=== PATIENT | male | born 1945 | race Caucasian/White ===

== ENCOUNTER → 2016-10-15 | Outpatient (CLI) | payer MEDICARE ==
[~2016-10-15] MED LIST: IOHEXOL 300MG/ML 150 ML BTL ONE; SOD CHLORIDE 0.9% 0 ML ONE; SOD CHLORIDE 0.9% 100 ML ONE
== END | disposition home or self-care (01) ==
LOC: C/S 12:42
PROVIDERS: ATTEND Internal Medicine
DX: R19.00 Intra-abdominal and pelvic swelling, mass and lump, unspecified site (principal)
CPT/HCPCS: 74177; Q9967

== ENCOUNTER 2017-02-11 10:34 | Observation (INO) | payer MEDICARE ==
[2017-02-10 16:04] VITALS: Ht 170.2 cm; Wt 90.4 kg
[~2017-02-11] VITALS: Ht 170.2 cm; Wt 90.4 kg
[2017-02-11] VITALS (15 sets, daily range): BP systolic 122–155; BP diastolic 57–79; PULSE 56–85; RESP 15–18
--- NOTE | 2017-02-11 09:10 | HPN ---
Date/Time of Note Date/Time of Note DATE: 02/11/17 TIME: 09:09 Interval H&P Admission Note Pt. seen H&P reviewed: No system changes VINICIUS WALLER MD Feb 11, 2017 09:10
[~2017-02-11 10:34] MED LIST changes: +ATROPINE 1 MG/10 ML SYRINGE IV PRN; +DIPHENHYDRAMINE 50 MG INJ IV PRN; +EPHEDrine SULFATE 50 MG/5 ML SYG IV PRN; +FENTAnyl 50 MCG/ML VIAL IV PRN; +HYDROmorphONE (0.2 MG/ML) 10ML SYG IV PRN; -IOHEXOL 300MG/ML 150 ML BTL ONE; +LABETALOL HCL 20MG INJ IV PRN; +MEPERIDINE 25 MG INJ IV PRN; +MIDAZOLAM 1 MG/ML 2 ML INJ IV PRN; +ONDANSETRON 4 MG INJ IV PRN; +OXYCODONE/ACETAMINOPHEN (5/325) TAB PO PRN; -SOD CHLORIDE 0.9% 0 ML ONE; -SOD CHLORIDE 0.9% 100 ML ONE; +SUGAMMADEX SODIUM 200 MG/2 ML VIAL IV ONE; +hydrALAzine 20 MG INJ IV PRN; +morphine (1 MG/ML) 10ML SYRINGE IV PRN
--- NOTE | 2017-02-11 10:58 | HP ---
DATE OF ADMISSION: 02/11/2017 The patient is being admitted on an elective basis on 02/11/2017 for transurethral resection of the prostate per Dr. Biggs. HISTORY OF PRESENT ILLNESS: The patient is a 72-year-old gentleman who is well known to me with his tory of benign prostatic hypertrophy with frequent urinary retention requiring self-catheterization and the patient had been seen by Dr. Biggs and was advised TUR and is being admitted for same. MEDICATIONS: Include: 1. Warfarin 3 mg p.o. daily, on hold for the past week. 2. Carvedilol 25 mg daily. 3. Lisinopril 5 mg daily. 4. Risperidone 1.5 mg q.p.m. 5. Lexapro 5 mg p.o. daily. REVIEW OF SYSTEMS: HEAD: No history of headaches. Has occasional dizziness. No focal weakness or numbness. The martinez ent has recently been diagnosed with major depressive disorder with psychotic features, seen by [facility]. EYES: The patient wears glasses. No history of cataracts. ENT: No sinusitis, tonsillitis, or hearing loss. NECK: No history of thyroid disease. CHEST: No cough, shortness of breath, hay fever, or asthma. The patient does not smoke. HEART: History of chronic atrial fibrillation diagnosed 10 years ago, states that he has always bee n in atrial fibrillation, does not have any symptoms of shortness of breath or dizziness or palpitat ions, had been on Coumadin for the past 10 years. Denies any PND, orthopnea. The patient had been seen by Dr. Mcclellan, had been cleared for TURP. GASTROINTESTINAL: No constipation, diarrhea, change in bowel habits. The patient had a fullness in the abdomen and underwent a GI workup including colonoscopy which showed normal finding all the way to the cecum, normal esophagus with some gastritis. GENITOURINARY: History of nephrolithiasis, history of BPH as above. The patient had urine culture d one preop which showed E. coli more than 100,000 and been placed on a course of Cipro 500 mg p.o. b. i.d. FAMILY HISTORY: Noncontributory. ALLERGIES: NO KNOWN ALLERGIES. PHYSICAL EXAMINATION: GENERAL: The patient is an average-built male who is presently in no acute distress, very pleasant, awake, alert. VITAL SIGNS: Blood pressure 140/90, respiratory 20 per minute. HEENT: Head normocephalic. No pallor, cyanosis, or icterus. Tongue is moist. NECK: Supple. No thyromegaly, bruits or lymphadenopathy. CHEST: Clinically clear. HEART: S1, S2 heard with no definite gallops. ABDOMEN: Soft, nontender, no hepatosplenomegaly. EXTREMITIES: No edema. Homans sign is negative. NEUROLOGIC: No localizing or lateralizing signs. Chest x-ray shows normal size heart, lung hansen clear. INR done on 02/05/2017 was 1.9 (patient has since stopped Coumadin), hematocrit 38.6, WBC count 3.5. UA positive for nitrites, positive cultur es for E. coli more than 100,000 colony count, on Cipro, BUN 16, creatinine 1.0. Glucose 92. EKG s hows atrial fibrillation with acceptable ventricular response. IMPRESSION: 1. Benign prostatic hypertrophy, symptomatic for transurethral resection of prostate per Dr. Ananth del rosario. 2. Chronic atrial fibrillation, well compensated. No evidence of congestive heart failure. 3. Hypertension. 4. Underlying major depression. 5. Urinary tract infection with Escherichia coli. PLAN: The patient's overall medical condition is stable for the proposed surgery per Dr. Biggs. We will obtain another reading on the PT/INR prior to surgery if medical condition is stable for the proposed surgery. Dictated By: RINA MCKEON MD, SR/SANDRA Conf#: [id number] DID#: [id number]
[2017-02-11] MEDS ORDERED: LISI20TA11 PO (11:11)
[2017-02-11] MEDS ORDERED: CARV3.1260 PO (11:11)
[2017-02-11] MEDS ORDERED: WARF1TAB47 PO (11:11)
[2017-02-11] MEDS ORDERED: RIS1 PO (11:12)
[2017-02-11] MEDS ORDERED: POTA20TA96 PO (11:12)
[2017-02-11] MEDS ORDERED: ESCI5TAB PO (11:13)
[2017-02-11] MEDS ORDERED: GLYCOPYRROLATE 1 MG INJ ONE (11:16)
[2017-02-11] MEDS ORDERED: LIDOCAINE 2% (SDV) 5 ML INJ ONE (11:16)
[2017-02-11] MEDS ORDERED: NEOSTIGMINE 3 MG/3 ML SYRINGE ONE (11:17)
[2017-02-11] MEDS ORDERED: PROPOFOL 20 ML ONE (11:17)
[2017-02-11] MEDS ORDERED: MIDAZOLAM 1 MG/ML 2 ML INJ ONE (11:17)
[2017-02-11] MEDS ORDERED: FENTAnyl 50 MCG/ML VIAL ONE (11:17)
[2017-02-11] MEDS ORDERED: ROCURONIUM 50 MG INJ ONE (11:17)
[2017-02-11] MEDS ORDERED: ONDANSETRON 4 MG INJ ONE (11:18)
[2017-02-11] MEDS ORDERED: DEXAMETHASONE 4 MG/ML 1 ML INJ ONE (11:18)
[2017-02-11] MEDS ORDERED: CEFTRIAXONE 1 GM/50 ML (PMX) 50 ML IVPB SCH (12:16)
[2017-02-11] MEDS ORDERED: DEXTROSE 5%-0.45% NACL 1,000 ML IV SCH (15:11)
--- NOTE | 2017-02-11 15:26 | OPR ---
Date/Time of Note Date/Time of Note DATE: 02/11/17 TIME: 15:21 Operative Report Procedure Date: Feb 11, 2017 Preoperative Diagnosis Benign prostatic hypertrophy with urinary retention Postoperative Diagnosis Benign prostatic hypertrophy with urinary retention Operation/Procedure Performed Transurethral resection of the prostate Surgeon see signature line [employer]os[employer]dn[employer] Disposal Specialist None Anesthesia Type: general Anesthesiologist: LIDIA THOMSON MD Estimated Blood Loss: other (500 mL) Transfusion none Specimen Prostatic tissue Grafts/Implants none Complications none Pt Condition Post Procedure: stable Disposition: PACU Indications Benign prostatic hypertrophy, very large prostate, urinary retention Procedure Description The patient was brought to the operating room general anesthesia was induced. Timeout was done the patient was identified by his name birthdate and the procedure. The patient was given 1 g of ceftriaxone IV at the start of the procedure. The genital area was then prepped and draped in the usual sterile manner cystoscopy was done was a 22 [place] cystoscope and it showed prostatic enlargement with obstruction, the bladder was trabeculated, there was no bladder tumors or stones. The cystoscope was then removed and the urethra was dilated with a [place] dilators up to #30 [place]. The 26 [place] bipolar resectoscope sheath was then introduced under direct vision through the penile urethra all the way to the bladder. Then the resection of the prostate was started first the median lobe was resected then the right lateral lobe then the left lateral lobe and finally the anterior lobe as well as apical tissue. All the bleeders were electrocoagulated, all the prostatic chips were evacuated, good hemostasis was obtained. The ureteral orifices as well as external sphincter were intact and safeguarded during the whole procedure. At the end of the procedure the resectoscope was removed and #24 [place] three-way Smallwood catheter was inserted into the bladder the balloon was inflated with 90 mL of sterile water the catheter was put under traction and connected to a drainage bag and continuous bladder irrigation was started in the operating room with normal saline. The patient was transferred to the recovery room in stable and satisfactory condition. VINICIUS WALLER MD Feb 11, 2017 15:25
[2017-02-11] MEDS ORDERED: TOLTERODINE (SR) 4 MG CAP PO ONE (16:00)
[2017-02-11] MEDS ORDERED: POTASSIUM CHLORIDE 30 MEQ in DEXTROSE 5%-0.45% NACL 1,000 ML IV SCH ×2 (19:00→22:00)
[2017-02-11] MEDS: CEFTRIAXONE 1 GM/50 ML (PMX) 50 ML IVPB SCH (20:01)
[2017-02-11] MEDS ORDERED: D5W-0.45 NACL + KCL 30 MEQ 1,000 ML IV SCH (23:30)
[2017-02-12 00:10] VITALS: BP 130/70; RESP 18
[2017-02-12 02:08] VITALS: BP 118/80; RESP 18
--- NOTE | 2017-02-12 02:59 | PN ---
DATE: 02/11/2017 SUBJECTIVE: The patient is a 72-year-old gentleman well known to me with a history of benign prosta tic hypertrophy admitted today for TURP per Dr. Biggs, and the patient was seen postoperatively. MEDICATIONS: 1. Warfarin 3 mg daily, which has been on hold for the past week. 2. Carvedilol 25 mg daily. 3. Lisinopril 5 mg daily. 4. Risperidone 1.5 mg p.o. q.p.m. 5. Lexapro 5 mg p.o. daily. The patient also has history of chronic atrial fibrillation. PHYSICAL EXAMINATION GENERAL: The patient is presently awake. VITAL SIGNS: Temperature 98.2, blood pressure 139/69, O2 saturation 99% on 2 liters nasal cannula. LUNGS: Clinically clear. HEART: S1, S2 heard with no definite gallops. Irregular rhythm. EXTREMITIES: No edema. The patient is presently getting bladder irrigation. LABORATORY DATA: Hematocrit done at 1530 hours is 31.5. Sodium 145, potassium 3.5, BUN 19, creatin ine 0.96. IMPRESSION: 1. Benign prostatic hypertrophy with a very large prostate, status post TURP. No evidence of bladde r tumor or stones. 2. Chronic atrial fibrillation, well compensated. 3. Mild anemia. 4. Hypertension. 5. Borderline potassium levels. PLAN: Will add 20 mEq of KCl in the IV to keep the potassium over 4 in view of underlying atrial fi brillation. The patient had been on lisinopril, carvedilol and Lexapro which will be continued. We will hold on the risperidone. Recheck potassium and magnesium in a.m. along with renal function an d hemoglobin and hematocrit. Transfuse as needed. Follow up GI recommendations per Dr. Biggs. Dictated By: RINA MCKEON MD SR/NTS Conf#: [id number] DID#: [id number]
[2017-02-12 07:34] VITALS: BP 131/84; RESP 18
--- NOTE | 2017-02-12 07:51 | PN ---
Date/Time of Note Date/Time of Note DATE: 02/12/17 TIME: 07:48 Assessment/Plan VTE Prophylaxis VTE Prophylaxis Intervention: SCD's Lines/Catheters IV [facility] Saline Lock Urinary Cath still in place: Yes Reason Cath still needed: other (indicate) (Urological surgery) Assessment/Plan Chief Complaint/Hosp Course Patient is status post transurethral resection of the prostate. Bladder irrigation was still going,will try to slow it down today, encourage him to drink a lot of fluids. Try to ambulate, stool softener and milk of magnesia as needed. May stop the irrigation tomorrow and then the urine remains clear we could send him home Problems: Subjective 24 Hr Interval Summary Constitutional: no complaints Eyes: no complaints Respiratory: no complaints Cardiovascular: no complaints Gastrointestinal: no complaints Genitourinary: other (No bladder spasms) Musculoskeletal: no complaints Exam/Review of Systems Vital Signs Vitals Vital Signs Date Time Temp Pulse Resp B/P Pulse Ox O2 Delivery O2 Flow Rate FiO2 02/12/17 07:34 98.5 78 18 131/84 100 02/12/17 01:20 2.0 02/11/17 20:13 Room Air Intake and Output 02/11/17 02/11/17 02/12/17 15:00 23:00 07:00 Intake Total 3450 ml 1200 ml Output Total 500 ml 2000 ml Balance -500 ml 3450 ml -800 ml Exam Constitutional: alert Psych: no complaints Eyes: nl conjunctiva Neck: supple Respiratory: normal air movement Cardiovascular: No edema Gastrointestinal: soft Genitourinary - Male: other (Three-way Smallwood catheter in place, bladder irrigation, return is clear) Extremities: No calf tenderness Results Result Diagram: 02/12/17 0500 02/11/17 1529 Results 24 hrs Laboratory Tests Test 02/11/17 11:30 02/11/17 15:29 02/11/17 15:30 02/12/17 05:00 Prothrombin Time 15.2 H Prothrombin Time Ratio 1.2 INR International Normalized Ratio 1.19 Activated Partial Thromboplast Time 30.9 Sodium Level 145 H Potassium Level 3.5 Chloride Level 115 H Carbon Dioxide Level 23 Anion Gap 11 Blood Urea Nitrogen 19 Creatinine 0.96 Glucose Level 92 Calcium Level 7.5 L Hemoglobin 10.7 L 11.3 L Hematocrit 31.5 L 32.9 L White Blood Count 4.3 L Red Blood Count 3.70 L Mean Corpuscular Volume 88.9 Mean Corpuscular Hemoglobin 30.5 Mean Corpuscular Hemoglobin Concent 34.3 Red Cell Distribution Width 12.5 Platelet Count 175 Mean Platelet Volume 10.8 H Neutrophils % 90.7 H Lymphocytes % 5.6 L Monocytes % 3.5 Eosinophils % 0.0 Basophils % 0.0 Nucleated Red Blood Cells % 0.0 Neutrophils # 3.9 Lymphocytes # 0.2 L Monocytes # 0.2 L Eosinophils # 0.0 Basophils # 0.0 Nucleated Red Blood Cells # 0.0 Magnesium Level 1.3 L Medications Medications Current Medications Tolterodine Tartrate 4 mg 4 mg DAILY PO ; Start 02/12/17 at 09:00 Ceftriaxone Sodium 50 ml @ 100 mls/hr Q24H IVPB Last administered on t 20:01; Admin Dose 100 MLS/HR; Start 02/11/17 at 20:00 Potassium Chloride/Dextrose/ Sod Cl (D5-1/2ns + KCl 30 Meq) 1,000 ml @ 50 mls/ hr Q20H IV ; Start 02/11/17 at 23:30 VINICIUS WALLER MD Feb 12, 2017 07:51
[2017-02-12] MEDS ORDERED: MAGNESIUM HYDROXIDE 30ML CUP PO PRN (08:00)
[2017-02-12] MEDS: DOCUSATE SODIUM 100 MG CAP PO SCH ×2 (08:18→21:04)
[2017-02-12] MEDS: TOLTERODINE (SR) 4 MG CAP PO SCH (08:18)
[2017-02-12 14:00] VITALS: BP 122/74; RESP 18
[2017-02-12] MEDS ORDERED: MAGNESIUM SULFATE 4 GM/100 ML 100 ML IVPB ONE (15:00)
[2017-02-12 20:02] VITALS: BP 122/80; PULSE 84; RESP 18
[2017-02-12] MEDS: CEFTRIAXONE 1 GM/50 ML (PMX) 50 ML IVPB SCH (21:04)
--- NOTE | 2017-02-13 02:07 | PN ---
DATE: 02/12/2017 SUBJECTIVE: The patient overall feels well. Denies any chest pain, shortness of breath, or palpita tions. Appetite is good. No nausea, vomiting . Bladder irrigation in progress. Urine is pink, not cloudy. The patient has not had a BM as yet. Denies any chills. PHYSICAL EXAMINATION GENERAL: The patient is awake, alert. VITAL SIGNS: Temperature 98.5, blood pressure 131/84, respiratory rate 20 per minute, pulse irregul rosalina irregular, heart rate 100. LUNGS: Clinically clear. HEART: S1, S2 with no definite gallops. EXTREMITIES: No edema. LABORATORY DATA: BMP is pending, hematocrit 32.9, magnesium 1.3. IMPRESSION: 1. Status post TURP with no evidence of bladder tumor or stones. 2. Chronic atrial fibrillation. 3. Mild anemia. 4. Severe hypomagnesemia. PLAN: Will recheck potassium, replace magnesium, given 4 gram bolus. Restart on beta blockers. Ca rvedilol 25 mg p.o. right now. Consider increasing the dose of beta blockers depending on the ventr icular response. Recheck labs again in a.m. Dictated By: RINA MCKEON MD, SR/SANDRA Conf#: [id number] DID#: [id number]
[2017-02-13 07:00] VITALS: BP 139/82; RESP 18
[2017-02-13] MEDS: DOCUSATE SODIUM 100 MG CAP PO SCH (08:42)
[2017-02-13] MEDS: TOLTERODINE (SR) 4 MG CAP PO SCH (08:43)
--- NOTE | 2017-02-13 12:34 | PN ---
Date/Time of Note Date/Time of Note DATE: 02/13/17 TIME: 12:29 Assessment/Plan VTE Prophylaxis VTE Prophylaxis Intervention: ambulation Lines/Catheters IV Catheter Type (from Nrs): Peripheral IV Urinary Cath still in place: Yes Reason Cath still needed: other (indicate) (Urological surgery) Assessment/Plan Chief Complaint/Hosp Course Patient is status post transurethral resection of the prostate. Patient is doing well. The urine is clear without irrigation. The patient could go home today with the Smallwood catheter and a leg bag and I will see him in the office on Tuesday or to remove the Smallwood catheter. He has very little if any pain therefore he does not need any pain medications. I wrote a prescription for him for Colace and ferrous sulfate and milk of magnesia. Problems: Subjective 24 Hr Interval Summary Free Text/Dictation Patient is a 72-year-old male status post transurethral resection of the prostate. He is feeling better, has less bladder spasms, he had 2 bowel movements yesterday. The bladder irrigation was stopped this morning and the urine remains clear. Exam/Review of Systems Vital Signs Vitals Vital Signs Date Time Temp Pulse Resp B/P Pulse Ox O2 Delivery O2 Flow Rate FiO2 02/13/17 07:00 97.2 75 18 139/82 97 02/13/17 00:24 2.0 02/12/17 20:02 Room Air Intake and Output 02/12/17 02/12/17 02/13/17 15:00 23:00 07:00 Intake Total 600 ml 1410 ml 1500 ml Output Total 2800 ml 1700 ml Balance 600 ml -1390 ml -200 ml Exam Constitutional: alert, oriented Gastrointestinal: soft Genitourinary - Male: other (Smallwood catheter draining clear urine) Extremities: No calf tenderness Results Pathology report still pending Result Diagram: 02/13/17 0433 02/13/17 0433 Results 24 hrs Laboratory Tests Test 02/12/17 14:21 02/13/17 04:33 Sodium Level 142 142 Potassium Level 4.1 4.0 Chloride Level 108 108 Carbon Dioxide Level 26 28 Anion Gap 12 10 Blood Urea Nitrogen 16 19 Creatinine 1.05 1.16 Glucose Level 107 91 Calcium Level 8.6 8.2 L White Blood Count 4.7 L Red Blood Count 3.45 L Hemoglobin 10.5 L Hematocrit 31.1 L Mean Corpuscular Volume 90.1 Mean Corpuscular Hemoglobin 30.4 Mean Corpuscular Hemoglobin Concent 33.8 Red Cell Distribution Width 13.1 Platelet Count 161 Mean Platelet Volume 10.7 H Neutrophils % 70.9 Lymphocytes % 15.8 Monocytes % 12.0 H Eosinophils % 0.9 Basophils % 0.2 Nucleated Red Blood Cells % 0.0 Neutrophils # 3.3 Lymphocytes # 0.7 L Monocytes # 0.6 Eosinophils # 0.0 Basophils # 0.0 Nucleated Red Blood Cells # 0.0 Phosphorus Level 2.9 Magnesium Level 2.0 Medications Medications Current Medications Tolterodine Tartrate 4 mg 4 mg DAILY PO Last administered on 02/13/17 08:43; Admin Dose 4 MG; Start 02/12/17 at 09:00 Ceftriaxone Sodium (Rocephin) 50 ml @ 100 mls/hr Q24H IVPB Last administered on 02/12/17 21:04; Admin Dose 100 MLS/HR; Start 02/11/17 at 20:00 Docusate Sodium (Colace) 100 mg BID PO Last administered on 02/13/17 08:42; Admin Dose 100 MG; Start 02/12/17 at 09:00 Magnesium Hydroxide (Milk Of Mag) 30 ml BID PRN PO CONSTIPATION; Start at 08:00 Carvedilol (Coreg) 25 mg DAILY PO Last administered on 02/13/17 08:42; Admin Dose 25 MG; Start 02/13/17 at 09:00 VINICIUS WALLER MD Feb 13, 2017 12:34
[2017-02-13 14:00] VITALS: BP 134/76; RESP 18
== END 2017-02-13 15:26 | disposition home or self-care (01) ==
LOC: SDS 10:34 → REC 15:41 → MS1 16:45
PROVIDERS: ADMIT Urology; ATTEND Urology
DX: N40.1 Benign prostatic hyperplasia with lower urinary tract symptoms (principal); R33.8 Other retention of urine; I48.2 Chronic atrial fibrillation; D64.9 Anemia, unspecified; I10 Essential (primary) hypertension; E83.42 Hypomagnesemia
CPT/HCPCS: 52601; 80048; 83735; 84100; 85014; 85018; 85025; 85610; 85730; 86850; 86900; 86901; 86920; 88309; G0378; J0696; J1100; J2250; J2405; J3010; J3475; J3480; J7042; J2710